=== PATIENT | male | born 1965 | race Caucasian/White ===

== ENCOUNTER 2020-03-31 12:07 | Emergency (ER) | payer OTHER ==
[~2020-03-31] VITALS: Ht 177.8 cm; Wt 74.4 kg
--- NOTE | 2020-03-31 12:16 | NUR ---
Patient came in to the er c/o suicidal ideation "i want to overdose on heroin". Sitter at bedside for constant monitoring. Kept comfortable, will continue to monitor accordingly.
--- NOTE | 2020-03-31 12:34 | NUR ---
urine collected and sent to lab
[2020-03-31 12:46] LABS: BASOPHILS # (AUTO) 0.1 /CMM (0.0-0.2); EOSINOPHILS % (AUTO) 5.9 % (0.0-6.0); HEMATOCRIT 44 % (39-51); HEMOGLOBIN 14.3 g/dL (13.5-17.5); LYMPHOCYTES # (AUTO) 1.6 /CMM (0.8-4.8); LYMPHOCYTES % (AUTO) 18.6 % (20.0-44.0); MEAN CORPUSCULAR HGB CONC 33 g/dl (31.0-36.0); MEAN CORPUSCULAR VOLUME 88 fL (80-96); MONOCYTES # (AUTO) 0.6 /CMM (0.1-1.30); MONOCYTES % (AUTO) 6.8 % (2.0-12.0); NEUTROPHILS # (AUTO) 5.9 /CMM (1.8-8.9); NEUTROPHILS % (AUTO) 67.7 % (43.0-81.0); PLATELET COUNT (AUTO) 131 /CMM (150-450); RED BLOOD CELL COUNT(AUTO) 4.94 MIL/uL (4.5-6.0); WHITE BLOOD COUNT (AUTO) 8.7 K/uL (4.3-11.0)
[2020-03-31 12:52] LABS: APPEARANCE,URINE CLEAR (CLEAR); BILIRUBIN,URINE NEGATIVE (NEGATIVE); BLOOD, URINE NEGATIVE Ery/uL (NEGATIVE); COLOR,URINE YELLOW (YELLOW); KETONES,URINE NEGATIVE (NEGATIVE); LEUKOCYTE ESTERASE ,URINE NEGATIVE (NEGATIVE); NITRITE, URINE NEGATIVE (NEGATIVE); PH,URINE 6.5 (5.0-8.0); PROTEIN,URINE NEGATIVE (NEGATIVE); UGLUCOSE NEGATIVE (NEGATIVE); UROBILINOGEN,URINE 0.2 EU/dL (0.2)
[2020-03-31 13:01] LABS: ALANINE AMINOTRANSFERASE 13 U/L (12-78); ALBUMIN 3.3 g/dL (3.4-5.0); ALCOHOL, BLOOD < 3 mg/dL (0-0); ALKALINE PHOSPHATASE 125 U/L (46-116); ASPARTATE AMINOTRANSFERASE 12 U/L (15-37); BILIRUBIN,DIRECT 0.1 mg/dL (0.0-0.2); BILIRUBIN,TOTAL 0.3 mg/dL (0.2-1.0); CALCIUM, SERUM 8.9 mg/dL (8.5-10.1); CARBON DIOXIDE 29 mmol/L (21-32); CHLORIDE 103 mmol/L (98-107); GLUCOSE 97 mg/dL (74-106); POTASSIUM 4.1 mmol/L (3.5-5.1); SODIUM SERUM 139 mmol/L (136-145); UREA NITROGEN, BLOOD 12 mg/dL (7-18)
[2020-03-31 13:19] LABS: ACETAMINOPHEN < 10 ug/ml (10-30)
--- NOTE | 2020-03-31 13:44 | NUR ---
philippe at bedside for consult.
--- NOTE | 2020-03-31 15:17 | NUR ---
SUPA consult requested as patient presents to [facility] ER with suicidal plan. SW met with the patient at bedside. Patient is a 54-year-old male who presents to [facility] ER with suicidal plan to overdose on heroin. Patient is alert and oriented x4. Patient reports that he has been homeless for 3 months. Per patient, he was living in a fpc for 8 weeks and was told he was positive for COVID-19, 3 months ago. Patient reports going to an outside clinic to receive a second opinion regarding COVID-19 and was given negative results. Patient left AMA 3 months ago and per patient, he has been all over [facility]. Per patient, he was living in [facility], followed by [facility], and is now on [place]. Patient refusing homeless resources stating, I know where everything is at now and my telephonic case manager with [employer] is working on a place for me. Patient provided names of two case mgr Francy and Laurie who are working on placement for the patient. Per patient, he is currently receiving $221 in [employer] and $194 in food stamps. Patient reports that his primary care physician is Dr. Menezes and his psychiatrist is Dr. Garcia, both at [facility]. Per patient, he is HIV positive and frequently goes to Dr. Menezes. Patient stated that he would like to undergo voluntary psychiatric treatment because he has not seen his psychiatrist in 3 months and would like to stop hearing voices. Patient reports depression and schizophrenia diagnoses. Patient reports taking Zoloft and Abilify in the past. Patient denies auditory hallucination. Patient denies alcohol and cigarette use. SUPA to speak with Dr. Zelaya about voluntary psychiatric treatment for the patient. SUPA to fax clinicals to [facility] intake .
--- NOTE | 2020-03-31 15:19 | NUR ---
SUPA faxed clinicals to [facility] intake . COVID results pending.
--- NOTE | 2020-03-31 16:02 | NUR ---
COVID RESULT FAXED TO [facility].
--- NOTE | 2020-03-31 16:07 | NUR ---
COVID result faxed to [facility]
--- NOTE | 2020-03-31 16:24 | NUR ---
SHARON FROM [facility], PATIENT ACCEPTED AT [facility] BY DR. OLIVEIRA. UNIT 2, 211-A PHONE# FOR REPORT, EXT [phone].
--- NOTE | 2020-03-31 16:41 | NUR ---
Alissa buitrago in [facility] - 03/31/20 at 1645 by KELSEA [id number] RESERVATION #[id number] AMBULIFE AMBULNZ ETA [id number]
--- NOTE | 2020-03-31 16:46 | NUR ---
[id number] RESERVATION #[id number] AMBULIFE AMBULN ETA [id number]
[2020-03-31 18:20] VITALS: BP 127/80
--- NOTE | 2020-03-31 18:41 | NUR ---
REPORT GIVEN TO DAKOTA BOLAÑOS AT [facility].
--- NOTE | 2020-03-31 19:51 | NUR ---
UPDATED ETA 1999
--- NOTE | 2020-03-31 20:01 | NUR ---
REPORT GIVEN TO TRANSPORT TEAM FOR RAN. AND TRANSFERRING RESPONSIBILTIES.
--- NOTE | 2020-03-31 20:03 | NUR ---
BELONGINGS RETUNRED TO PATIENT
== END 2020-03-31 20:05 ==
LOC: ER 12:13
DX: R45.851 Suicidal ideations (principal); F31.9 Bipolar disorder, unspecified; F20.9 Schizophrenia, unspecified; Z20.828 Contact with and (suspected) exposure to other viral communicable diseases
CPT/HCPCS: 36415; 80048; 80076; 80299; 80307 ×2; 80320; 81001; 85025; 87426; 99285; C9803; 81000-TC; G0480